=== PATIENT | male | born 1960 | race African-American/Black ===

== ENCOUNTER 2020-08-14 17:10 | Emergency (ER) | payer OTHER ==
[~2020-08-14] VITALS: Ht 175.3 cm; Wt 85.0 kg
[2020-08-14] MEDS ORDERED: KETOROLAC 60MG/2ML VIAL IM ONE (18:15)
[2020-08-14 20:51] VITALS: BP 171/100
== END 2020-08-14 21:53 | disposition home or self-care (01) ==
LOC: ER 17:10
DX: M79.662 Pain in left lower leg (principal); M79.89 Other specified soft tissue disorders; M25.462 Effusion, left knee; I10 Essential (primary) hypertension
CPT/HCPCS: 73560; 73590; 93005; 93971; 96372; 99285; J1885